=== PATIENT | male | born 1960 | race Caucasian/White ===

== ENCOUNTER 2025-02-23 02:57 | Emergency (ER) | payer MEDICARE ==
[~2025-02-23] VITALS: Ht 177.8 cm; Wt 107.1 kg
[2025-02-23] MEDS ORDERED: ATORVASTATIN CA40 M1 PO (03:12)
[2025-02-23] MEDS ORDERED: LOSARTAN POTASS25 M1 PO (03:12)
[2025-02-23] MEDS ORDERED: TAMSULOSIN HCL0.4 MG PO (03:12)
== END 2025-02-23 05:21 | disposition home or self-care (01) ==
LOC: ED 02:57
DX: I10 Essential (primary) hypertension (principal); Z79.899 Other long term (current) drug therapy